=== PATIENT | male | born 1965 | race Hispanic/Latino ===

== ENCOUNTER 2017-04-02 07:50 | Emergency (ER) | payer SELFPAY ==
[2017-04-02 07:51] VITALS: BMI 23.1
[2017-04-02 08:03] VITALS: BP 118/74; PULSE 67; RESP 18; TEMP 98; O2SAT 100
--- NOTE | 2017-04-02 10:58 | RAD ---
PROCEDURE: Radiographs of the Left Scapula HISTORY: left scapular dislocation COMPARISON: Left shoulder radiographs 03/25/2017. FINDINGS: BONES: No fracture destructive bony process is appreciated. There is no dislocation identified at the acromioclavicular or glenohumeral joints. The scapula appears winged medially once again, without definite interval change. Further clinical correlation is advised. JOINTS: Normal. Glenohumeral and acromioclavicular joints preserved. No osteoarthritis. SOFT TISSUES: Normal. OTHER FINDINGS: None. IMPRESSION: Winged left scapula again appreciated likely from neuro muscular dysfunction as previously suggested. Further clinical correlation is advised as to the etiology. No fracture or dislocation identified left shoulder.
--- NOTE | 2017-04-02 11:21 | C.PDOC ---
History Of Present Illness 51 y/o male presents to ED for evaluation of left shoulder pain. 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 Pt states that while lifting a heavy object today, he felt his scapula lock in while moving his arms above his head. Pt is right hand dominant. No new injury, or trauma. Pt was seen here 1 week ago for similar symptoms, was referred to orthopedist but has not followed up yet as outpt. No other complaints. Time Seen by Provider: 04/02/17 08:12 Chief Complaint (Nursing): Upper Extremity Problem/Injury History Per: Patient History/Exam Limitations: no limitations Onset/Duration Of Symptoms: Days Current Symptoms Are (Timing): Still Present Quality: "Pain" Exacerbating Factor(s): Nothing Recent travel outside of the [place]: No Additional History Per: Patient Past Medical History Reviewed: Historical Data, Nursing Documentation, Vital Signs Vital Signs: Last Vital Signs Temp 98 F 04/02/17 08:01 Pulse 67 04/02/17 08:01 Resp 18 04/02/17 08:01 BP 118/74 04/02/17 08:01 Pulse Ox 100 04/02/17 13:42 Family History: States: Unknown Family Hx - Social History Hx Alcohol Use: No Hx Substance Use: No - Immunization History Hx Tetanus Toxoid Vaccination: No Hx Influenza Vaccination: No Hx Pneumococcal Vaccination: No Review Of Systems Except As Marked, All Systems Reviewed And Found Negative. Constitutional: Negative for: Fever, Chills Musculoskeletal: Positive for: Shoulder Pain (left) Skin: Negative for: Rash, Bruising Neurological: Negative for: Weakness, Numbness Physical Exam - Physical Exam Appears: Non-toxic, No Acute Distress Skin: Normal Color, Warm, Dry Head: Atraumatic, Normacephalic Eye(s): bilateral: Normal Inspection Neck: Normal ROM, Supple Respiratory: No Accessory Muscle Use Extremity: Normal ROM, Tenderness (left shoulder), Capillary Refill (less than 2 seconds), Deformity (left scapula elevated towards trapezius, but no obvious dislocation), No Swelling Pulses: Left Brachial: Normal, Right Brachial: Normal Neurological/Psych: Oriented x3, Normal Speech, Normal Motor, Normal Sensation ED Course And Treatment O2 Sat by Pulse Oximetry: 100 (RA) Pulse Ox Interpretation: Normal - Other Rad Left shoulder x-ray X-Ray: Interpreted by Me, Viewed By Me Interpretation: FINDINGS: BONES: No fracture destructive bony process is appreciated. There is no dislocation identified at the acromioclavicular or glenohumeral joints. The scapula appears winged medially once again, without definite interval change. Further clinical correlation is advised. JOINTS: Normal. Glenohumeral and acromioclavicular joints preserved. No osteoarthritis. SOFT TISSUES: Normal. OTHER FINDINGS: None. IMPRESSION: Winged left scapula again appreciated likely from neuro muscular dysfunction as previously suggested. Further clinical correlation is advised as to the etiology. No fracture or dislocation identified left shoulder. Medical Decision Making Medical Decision Making: Impression: scapular deformity Left scapula x-ray ordered and reviewed. 10:[address] Chan who requested to order CT of left upper extremity but pt refused. As per Dr. Chan, MALGORZATA will evaluate patient. LANA Hernandez evaluated patient at bedside, pt does not agree with plan of action, and still refuses CT scan. Pt was noted to be moving both upper extremities with full range of motion, without limitations. Upper extremity deformity is not as obvious at this point. Considering scapular subluxation but cannot determine true dislocation without CT. Pt eloped from ER at 11:19. Disposition Discussed With DrSusannah: Ta Chan - Disposition Disposition: ELOPEMENT - ER ONLY Disposition Time: 11:20 Condition: STABLE Forms: [facility] (Botswanan) - Clinical Impression Clinical Impression: Scapular dysfunction - Scribe Statement The provider has reviewed the documentation as recorded by the Aviibedgardo Adams All medical record entries made by the Aviibedgardo were at my direction and personally dictated by me. I have reviewed the chart and agree that the record accurately reflects my personal performance of the history, physical exam, medical decision making, and the department course for this patient. I have also personally directed, reviewed, and agree with the discharge instructions and disposition.
--- NOTE | 2017-04-02 12:21 | CP.PCM.CON ---
History of Present Illness - History of Present Illness History of Present Illness: Orthopedic consultation as requested Dr. 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 He says that he was in ER 1 week ago, and at that time they gave him injection of pain medication and set his scapula. When asked why there are no xrays showing reduction of the scapula, he says that when he went in for xrays they moved his shoulder and it dislocated again and that ER physician was busy with code and told him to come back the next morning. Currently denies any numbness/tingling. He says in three days if he is not reduced that his hand will be swollen and blue and he will come back then. He says this dislocation happens 7-8x every year, and that he has seen doctors all over and at [place]. He says that they aren't able to fix what he had because if you google it you will see it is very rare and only 3 case reports exist. He requests transfer to another hospital, patient advised there is no indication for transfer at this time. He also says that he was seen at [facility] in the last week, as he was instructed to see trauma specialist, and that he has been there before and that the two highest orthopedic doctors saw him, set his shoulder, but said they have never seen this before and referred him to a doctor in the city (does not recall name of hospital or doctor). He says that [facility] has told him that they can't do anything for him. He also says that they told him that they will refuse the transfer if any attempt is made to transfer him to that hospital. Patient states he is being discriminated because he has rare condition. patient advocate at bedside. Patient refuses CT scan as ordered by Dr. Troy today. [facility]. Advised patient that he does not have an emergency condition to indicate transfer to a higher level hospital. Patient was seen on 03/25 and advised to f/ u with ortho trauma specialist by Dr. Dale. He refuses to see Dr. Dale or Dr. Troy in the office, because he says when he goes there they are goign to tell him that they can't give him propofol in the office and that he is going to end up back in the ER. He says he is goign to come back in 3 days and make this "your problem" until something is done for him. He says he isn't going to see the doctor in [place] he has appointment in 2 weeks, because he is just going to give him the run around also. Patient says he is new to the area, and when asked where he has previously been treated, he explained above history at [facility] only. Does not give any other facilities or doctors when prompted. Per Dr. Troy, recommends CT scan, sling, and f/u with ortho trauma as patient was previsouly instructed. patient refuses. Patient prior record reviewed, it is to be noted there is no record that the patient was given any medication. No record that any closed reduction was attempted. No record of any post reduction xrays ordered. Spoke with veterinary technician assistant who recalls patient and states that only one set of xrays were completed, and no repeat films were ordered or attempted. Patient was asked about this discrepancy, and he says he doesn't know why they didn't write in his chart, but again says it was reduced. Patient repeats several times that he is not asking for prescription for pain medication. 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 Past Patient History - Past Medical History & Family History Past Medical History?: Yes Past Family History: Reviewed and not pertinent - Past Social History Smoking Status: Heavy Smoker > 10 Cigarettes Daily - MUSCULOSKELETAL/RHEUMATOLOGICAL Other/Comment: several left shoulder dislocation, locked scapula syndrome - PSYCHIATRIC Hx Substance Use: No - SURGICAL HISTORY Hx Surgeries: No - ANESTHESIA Hx Anesthesia: No Meds Allergies/Adverse Reactions: Allergies Allergy/AdvReac Type Severity Reaction Status Date / Time NSAIDS (Non-Steroidal Allergy Severe ANAPHYLAXIS Verified 04/02/17 08:03 Anti-Inflamma barley Allergy Severe ANAPHYLAXIS Uncoded 04/02/17 08:03 Physical Exam - Constitutional Appears: Well, No Acute Distress - Head Exam Head Exam: ATRAUMATIC - Neck Exam Neck exam: Positive for: Full Rom, Normal Inspection - Respiratory Exam Respiratory Exam: NORMAL BREATHING PATTERN - Extremities Exam Additional comments: Patient uncooperative with exam Patient in fatigues. Patient removes shirts overhead with ease, no pain, good shoulder motion. Noted deformity to left scapula. Patient moves B hands/wrists/ elbows through full ROM without pain or limitation. +radial pulse, sensation intact, no swelling/deformity/discoloration of left shoulder area. Patient demonstrates during discussion that he moves left shoulder without pain , he pulls his shirt back on with ease, no pain. Left shoulder possibly shows limited motion as compared to right, however demonstrates no pain, is NV intact , and has functional motion of left shoulder while removing replacing shirt. He adjusts hat with both hands with ease. - Neurological Exam Neurological exam: Alert, Oriented x3 - Psychiatric Exam Psychiatric exam: Agitated - Skin Skin Exam: Dry, Intact, Normal Color, Warm Results - Vital Signs Recent Vital Signs: Last Vital Signs Temp 98 F 04/02/17 08:01 Pulse 67 04/02/17 08:01 Resp 18 04/02/17 08:01 BP 118/74 04/02/17 08:01 Pulse Ox 100 04/02/17 11:46 - Impressions Impression: Patient Name / ID : JAUN MCGREGOR / [id number] Exam Date : 04/02/2017 09:15:34 ( Approved ) Study Comment : Sex / Age : M / 51Y Creator : Akira Rizvi MD Dictator : Akira Rizvi MD Blade Changer : Electric Motor Repairer : Akira Rizvi MD Approver2 : Report Date : 04/02/2017 10:57:05 My Comment : PROCEDURE: Radiographs of the Left Scapula HISTORY: left scapular dislocation COMPARISON: Left shoulder radiographs 03/25/2017. FINDINGS: BONES: No fracture destructive bony process is appreciated. There is no dislocation identified at the acromioclavicular or glenohumeral joints. The scapula appears winged medially once again, without definite interval change. Further clinical correlation is advised. JOINTS: Normal. Glenohumeral and acromioclavicular joints preserved. No osteoarthritis. SOFT TISSUES: Normal. OTHER FINDINGS: None. IMPRESSION: Winged left scapula again appreciated likely from neuro muscular dysfunction as previously suggested. Further clinical correlation is advised as to the etiology. No fracture or dislocation identified left shoulder. Patient Name / ID : JAUN MCGREGOR / [id number] Exam Date : 03/25/2017 08:12:18 ( Approved ) Study Comment : Sex / Age : M / 51Y Creator : Darci Carlos MD Dictator : Darci Carlos MD Blade Changer : Electric Motor Repairer : Darci Carlos MD Approver2 : Report Date : 03/25/2017 16:17:17 My Comment : PROCEDURE: Radiographs of the Left Shoulder HISTORY: shoulder deformity COMPARISON: No prior. FINDINGS: BONES: No acute fracture. The scapula is abnormally situated cephalad relative to its normal position, with oblique positioning. This is likely due to a neuro muscular dysfunction. JOINTS: Normal. Glenohumeral and acromioclavicular joints preserved. No osteoarthritis. SOFT TISSUES: Normal. OTHER FINDINGS: None. IMPRESSION: No fracture or dislocation. Abnormal position of left scapula likely due to neuromuscular dysfunction. Assessment & Plan (1) Scapular dysfunction Assessment and Plan: Clinically unclear if there is any acute dislocation or if this is chronic position of scapula, or if he was severe winging of scapula patient refuses CT scan as recommended patient refuses follow up as recommended Patient's history is inconsistent with record from prior ER visit 03/25/2017 case d/w Dr. Troy, recommends sling and f/u with ortho trauma (patient states he has appointment in 2 weeks) patient threatens to call senior administrative associate, repeats that if he is not reduced his hand will be blue in 3 days and he will come back and keep coming back until something is done. Discussed with patient at length that this is a chronic problem, that there is no record of his being reduced last time, and that follow up with ortho in office is recommendation as he needs to see specialist and coming to the ER repeatedly will not change the recommendation, treatment, or outcome at this time. Patient refuses and walks out of hospital. Case d/w ER attg as well Status: Chronic (2) Closed dislocation of left scapula Status: Chronic Review of Systems - Review of Systems Constitutional: Negative for: Fever, HPI, A, Chills, Sweats, DS, Weakness, FA, Malaise, Other, FF, TAM, IA, L, NS, SN, LEAD GAME DESIGNER, WG, WL, UN Respiratory: Negative for: Cough, Dry, Shortness of Breath, Hemoptysis, SOB with Exertion, Pleuritic Pain, Sputum, Wheezing Cardiovascular: Negative for: Chest Pain, Palpitations, Orthopnea, Paroxysmal Noc. Dyspnea, Edema, Light Headedness, Other Musculoskeletal: Positive for: Other (as per HPI) Skin: Negative for: Rash, Lesions, Jaundice, Bruising, Other Neurological: Positive for: Other (as per HPI) - Medications/Allergies Allergies/Adverse Reactions: Allergies Allergy/AdvReac Type Severity Reaction Status Date / Time NSAIDS (Non-Steroidal Allergy Severe ANAPHYLAXIS Verified 04/02/17 08:03 Anti-Inflamma barley Allergy Severe ANAPHYLAXIS Uncoded 04/02/17 08:03
== END 2017-04-02 11:21 | disposition left against medical advice (07) ==
LOC: C.ER 07:50
DX: M95.8 Other specified acquired deformities of musculoskeletal system (principal); M24.412 Recurrent dislocation, left shoulder